=== PATIENT | male | born 1960 | race Caucasian/White ===

== ENCOUNTER 2021-11-25 09:16 | Emergency (ER) | payer MEDICAID ==
[~2021-11-25] VITALS: Ht 167.6 cm; Wt 91.0 kg
[2021-11-25 09:19] VITALS: BP 157/88
[2021-11-25 11:11] LABS: HEMATOCRIT. 39.1 % (42.0-52.0); HEMOGLOBIN. 12.6 g/dL (14.0-18.0); MEAN CORPUSCULAR HEMOGLOBIN 23.5 pg (28.0-32.0); MEAN CORPUSCULAR VOLUME 73.1 fL (80.0-94.0); PLATELET 264 x1000/uL (130-400); RED BLOOD CELL COUNT 5.35 mill/uL (4.7-6.1); RED CELL DISTRIBUTION WIDTH 19.1 % (11.6-14.6)
[2021-11-25] MEDS ORDERED: LEVETIRACETAM 500MG PREMIX 100 ML IV ONE ×2 (11:15)
[2021-11-25 11:48] LABS: PLATELET ESTIMATE NORMAL
[2021-11-25 12:23] LABS: CHLORIDE 102 mEq/L (98-107)
[2021-11-25 12:37] LABS: ETHANOL BLOOD < 10 mg/dL; PHOSPHORUS 2.2 mg/dL (2.5-4.9)
[2021-11-25] MEDS ORDERED: POTASSIUM-SODIUM PHOSPHATE POWDER PACKET PO NR (15:30)
[2021-11-25] MEDS ORDERED: BACITRACIN ZINC OINT UDPKT TOP NR (16:15)
[2021-11-25 16:32] LABS: CLARITY URINE CLEAR (CLEAR); COLOR URINE YELLOW (YELLOW); KETONES URINE NEGATIVE (NEGATIVE); LEUKOCYTE ESTERASE URINE NEGATIVE (NEGATIVE); NITRITE URINE NEGATIVE (NEGATIVE); OCCULT BLOOD URINE NEGATIVE (NEGATIVE); PROTEIN URINE NEGATIVE (NEGATIVE); SPECIFIC GRAVITY URINE 1.009 (1.005-1.030); UROBILINOGEN URINE 0.2 E.U./dL (0.2-1.0)
== END 2021-11-25 17:04 | disposition home or self-care (01) ==
LOC: EDBD 09:16 → ER 09:16
DX: G40.909 Epilepsy, unspecified, not intractable, without status epilepticus (principal); S00.11XA Contusion of right eyelid and periocular area, initial encounter; I49.9 Cardiac arrhythmia, unspecified; W18.30XA Fall on same level, unspecified, initial encounter; Y93.89 Activity, other specified; Y92.89 Other specified places as the place of occurrence of the external cause; Y99.8 Other external cause status
CPT/HCPCS: 36415; 80053; 80320; 81003; 83735; 84100; 84484; 85025; 93005; 96365; 99284; J1953; G0480